=== PATIENT | male | born 1940 | race Caucasian/White ===

== ENCOUNTER 2016-10-14 11:55 | Emergency (ER) | payer MEDICARE ==
--- NOTE | 2016-10-14 12:17 | EDPRACDOC ---
- General Information Chief Complaint: Generalized Weakness Stated Complaint: WEAKNESS, SWEATING Time Seen by Provider: 10/14/16 12:08 Home Medications: Home Medications Alprazolam [Xanax] 0.5 mg PO BID PRN 10/14/16 Aspirin 325 mg PO DAILY #30 tab 10/14/16 Escitalopram Oxalate [Lexapro] 20 mg PO DAILY 10/14/16 Pravastatin [Pravachol] 20 mg PO DAILY 10/14/16 Propranolol HCl [Inderal] 10 mg PO DAILY 10/14/16 Temazepam [Restoril] 15 mg PO QHS PRN 10/14/16 Allergies/Adverse Reactions: Allergies Allergy/AdvReac Type Severity Reaction Status Date / Time No Known Allergies Allergy Verified 10/14/16 12:18 - History of Present Illness HPI: PATIENT STATES HE HAS HAD A FEW EPISODES OF WEAKNESS NEARLY FALLING. DID NOT FEEL SYNCOPAL. PATIENT STATES HE HAS HAD SMALL EPISODES OF LEFT RIB PAIN WHICH ARE SHARP BUT DO NOT COINCIDE WITH WEAKNESS. INTERMITTENT CP LASTING SECONDS AT A TIME, DULL, AND LEFT SIDED. NEVER HAD STRESS TEST. NO FEVER. NO COUGH. NO HEADACHE Chest Pain Location: Reports: Left Chest Pain Radiation: Reports: None Symptoms Occur: Reports: Gradually Cardiac Risk Factors: Reports: Smoker, Family History, Hyperlipidemia, Hypertension. Denies: Diabetes Cardiac History of: Reports: None PE Risk Factors: Reports: None Medications within 24 Hours: Reports: None Prehospital Care: Reports: None Pain Came On: Reports: Gradually Pain Status: Present Now Pain Description: Reports: Pressure Pain Severity: Mild Pain Worsens With: Reports: Nothing Pain Improves With: Reports: Nothing Associated Signs and Symptoms: Reports: SOB ED Past Medical History - History Reviewed Yes Nurses notes reviewed and agree except as marked Travel Outside of [place] in the Last 3 Months?: No - Patient Medical History Cardiac History: Reports: Hypertension, Hypercholesterolemia - Social Medical History Smoking Status: Former smoker ETOH: None Substance Abuse: None Lives With: Spouse Lives In: Home EDM Review of Systems - Review of Systems ROS Negative Except as Marked: Yes All systems reviewed and were negative except as marked Constitutional: Fatigue. negative: Chills, Fever, Loss of Appetite, Weakness Eyes: No Symptoms Reported. negative: Redness, Blurred Vision, Double Vision, Discharge, Pain, Light Sensitive, Photophobia Ears: No Symptoms Reported. negative: Pain, Hearing Loss, Drainage, Ear Pulling Throat: No Symptoms Reported. negative: Pain, Swelling Nose: No Symptoms Reported. negative: Congestion, Bleeding, Discharge, Injection, Swelling, Deformity, Ecchymosis, Tender, Abrasion, Laceration Mouth: No Symptoms Reported. negative: Pain, Drooling Respiratory: No Symptoms Reported. negative: Cough, Brassy Cough, Barky Cough, Shortness of Breath, Wheezing, Hemoptysis Cardiovascular: Chest Pain. negative: Cyanosis, Edema, Orthopnea, Palpitations , PND, Syncope, Skin Mottling Gastrointestinal: No Symptoms Reported. negative: Pain, Constipation, Nausea, Vomiting, Diarrhea, Melena, Formula Intolerance Genitourinary: No Symptoms Reported. negative: Dysuria, Hematuria, Frequency, Discharge, Bleeding, Testicular Pain, Neurological: No Symptoms Reported. negative: Headache, Dizziness, Seizure, Numbness, Weakness, Speech Difficulty, Gait Difficulty Musculoskeletal: No Symptoms Reported. negative: Neck, Chestwall, Ribs, Back, Shoulder, Arm, Elbow, Forearm, Wrist, Hand, Pelvis, Hip, Femur, Knee, Leg, Ankle , Foot Integumentary: No Symptoms Reported. negative: Itching, Rash, Bruising, Wound Allergic/Immunologic: No Symptoms Reported. negative: Hives, Itching Hematologic: No Symptoms Reported. negative: Lymphadenopathy, Easy Bruising, Easy Bleeding Endocrine: No Symptoms Reported. negative: Weight Gain, Weight Loss Psychiatric: No Symptoms Reported. negative: Anxiety, Depression, Hallucinations, Insomnia, Suicidal - Physical Exam Constitutional: Alert (Awake), No apparent distress Oriented to: Time, Person, Place Last recorded Vital Signs: Oxygen Pulse Oxygen Saturation O2 Device Oxygen Flow Rate Fraction of Inspired Oxygen ( FIO2) - HEENT Head: Normal ( normocephalic) Eye Exam: Normal (PERRL, EOMI, Sclera white) Oropharynx: Normal (Pharynx:Moist without exudate,Gums-no swelling) Tympanic Membrane: Normal ENT EAC: Normal TMJ: Normal Nose: No Symptoms Reported (septum midline) Neck: Normal (FROM, trachea at midline) - Respiratory/Cardiovascular Respiratory: Normal - CTA (BBS clear to auscultation without adventitious sounds ) Cardiovascular: Normal (RRR without murmur, gallop or rub) - GI Auscultation: Normal (NABS) Palpation: Normal (Soft,No rebound or guarding, non distended) Tenderness: Non tender Livingston's Sign: Negative - Musculoskeletal Back: Normal (Non-Tender) Extremities: Normal (Normal tone, Pulses 2+ No cyanosis or edema, FROM) - Integumentary Skin: Normal, Warm, Dry Lymphatics: Normal (no adenopathy) - Neurologic Memory Impaired: Normal Motor Function: Normal (Normal tone, Pulses 2+ No cyanosis or edema, FROM) Cranial Nerve: Normal (CN II-X11 intact sensation, strength 5/5) Cerebellar: Normal Mood Description: Normal Perception: Normal - Differential Diagnosis Angina - Action ASA given in the ED: Yes Patient received Beta Mavis within last 24hrs: Yes - Results 10/14/16 12:45 10/14/16 12:45 - EKG EKG #1 EKG Time: 12:04 -: Yes EKG interpreted by me Rate: bpm: 63 [place]: Normal Rhythm: NSR Block: None Hypertrophy: None ST: Normal - Departure Yes I personally saw and evaluated the patient. Disposition: Home Condition: Good Final Diagnosis: Atypical chest pain, Weakness Instructions: Weakness (General), Chest Pain (ED), Chest Wall Pain Education/Counseling Given To: Patient Education/Counseling Given Regarding: Diagnosis, Treatment, Prognosis, Follow Up Referrals: Robin Garsia IV, MD [Primary Care Provider] - One Week Jaxson Pedraza MD [Staff Physician] - One Week Prescriptions: Aspirin 325 mg PO DAILY #30 tab Additional Instructions: follow up with dr. santiago for outpt stress test
[2016-10-14] MEDS ORDERED: ASPIRIN (CHEWABLE) 81 MG TAB PO ONE (12:18)
[2016-10-14 12:30] VITALS: BMI 24.3
[2016-10-14 12:32] VITALS: TEMP 98.3
[2016-10-14 13:05] LABS: AUTOMATED BASOPHIL 0.4 % (0-2); AUTOMATED EOSINOPHIL 0.7 % (0-5); AUTOMATED LYMPH 13.8 % (17-44); AUTOMATED MONOCYTE 10.8 % (3-10); AUTOMATED NEUTROPHIL 74.3 % (45-76); MPV 7.5 fL (7.4-10.4)
[2016-10-14 13:10] LABS: BLOOD UREA NITROGEN 20 MG/DL (9-20); CALCULATED OSMOLALITY 261 MOs/Kg (270-290); CHLORIDE 98 mEq/L (98-107); GLUCOSE 95 MG/DL (70-99); SODIUM LEVEL 134 mEq/L (137-146); TOTAL PROTEIN 6.9 G/DL (6.3-8.2)
[2016-10-14 13:14] LABS: PARTIAL THROMB. TIME 26.4 SEC (22-35)
--- NOTE | 2016-10-14 13:32 | DIRPT ---
CLINICAL DATA: Patient with shortness of breath and weakness for 2 days. EXAM: PORTABLE CHEST 1 VIEW COMPARISON: None. FINDINGS: Monitoring leads overlie the patient. Normal cardiac and mediastinal contours. No consolidative pulmonary opacities. No pleural effusion or pneumothorax. Regional skeleton is unremarkable. IMPRESSION: No acute cardiopulmonary process. Electronically Signed By: Choco Mohan M.D. On: 10/14/2016 13:29
[2016-10-14 14:17] LABS: LEUKOCYTES/URINE NEG (NEGATIVE); NITRITE/URINE NEG (NEGATIVE); RBC/URINE 0-2 (0-2); URINE OCCULT BLOOD NEG (NEG/TRACE); WBC/URINE 0-2 (0-2)
[2016-10-14] MEDS ORDERED: Pharmacy Review for Metformin - IV Contrast Given SCH (16:00)
--- NOTE | 2016-10-14 17:41 | DIRPT ---
CLINICAL DATA: Left rib pain and intermittent chest pain over the past week. Generalized weakness and shortness of breath. EXAM: CT ANGIOGRAPHY CHEST WITH CONTRAST TECHNIQUE: Multidetector CT imaging of the chest was performed using the standard protocol during bolus administration of intravenous contrast. Multiplanar CT image reconstructions and MIPs were obtained to evaluate the vascular anatomy. CONTRAST: 80 cc Isovue 370 COMPARISON: 10/14/2016 radiograph FINDINGS: Mediastinum/Nodes: No filling defect is identified in the pulmonary arterial tree to suggest pulmonary embolus. Intimal thickening in the aorta and branch vasculature with left anterior descending coronary artery atherosclerotic calcification. Left paratracheal node 0.9 cm in short axis, image 43 series 3. Small bilateral hilar lymph nodes are not pathologically enlarged. There is a punctate calcification in a subcarinal lymph node. Lungs/Pleura: Unremarkable Upper abdomen: Calcification in the right hepatic lobe likely from old granulomatous disease. Musculoskeletal: No discrete rib fracture or other significant abnormality to explain the patient's symptoms. Review of the MIP images confirms the above findings. IMPRESSION: 1. No filling defect is identified in the pulmonary arterial tree to suggest pulmonary embolus. No acute aortic findings. 2. Left anterior descending coronary artery atherosclerosis. 3. Old granulomatous disease. Electronically Signed By: Сергей Tom M.D. On: 10/14/2016 17:38
[2016-10-14 18:05] VITALS: BP 113/63; PULSE 60
== END 2016-10-14 17:50 | disposition home or self-care (01) ==
LOC: ED 11:55
DX: R07.89 Other chest pain (principal); R53.1 Weakness
CPT/HCPCS: 36415; 71010; 71275; 80053; 81001; 83880; 84484; 85025; 85379; 85610; 85730; 87086; 93005; 99284; A9270; A9698; J3490